=== PATIENT | male | born 1995 | race Caucasian/White ===

== ENCOUNTER 2021-04-10 09:46 | Emergency (ER) | payer BC, SELFPAY ==
--- NOTE | ~2021-04-10 | CT_ITS ---
EXAMINATION: CT BRAIN, CT CERVICAL SPINE AND CT FACIAL BONES WITHOUT CONTRAST. CLINICAL INFORMATION: Headache, memory loss and status post trauma. COMPARISON: None TECHNIQUE: 5 mm thin axial and reformatted 2 mm thin sagittal and coronal images of brain were obtained without contrast. Axial 3 mm thin and reformatted 1.5m thin sagittal and coronal images of facial bones were obtained. Subsequently axial 3 mm thin and reformatted 2 mm thin sagittal coronal images of cervical spine were obtained. DLP [id number]. FINDINGS: Brain: There is no acute intra-axial, extra-axial bleed, masses, collection or midline shift. There is no acute infarction in evolution. The lateral ventricles are symmetrical in size and configuration without ventriculomegaly. The frost to white matter difference is maintained normal. Bone windows reveal no calvarial abnormality. There is no scalp soft tissue abnormality. Facial bones: There is normal aeration of paranasal sinuses with a small polyp or retention cyst left maxillary sinus. There is mild mucoperiosteal thickening right maxillary sinus. Bilateral ostiomeatal complex and frontoethmoidal recesses are widely patent. There is mild hernandez bullosa right middle turbinate. Mild deviation nasal septum to the left is noted. The turbinates are symmetrical. The bony sinus villagomez, lamina papyracea and the cribriform plate appears normal. Cervical spine: There is normal cervical lordosis. The vertebral heights, alignment and disc heights are normal. The craniovertebral junction and the C1-C2 alignment is normal. There is no visible acute fracture, dislocation or subluxation. The thyroid lobes are symmetric and normal. The submandibular and parotid glands are symmetrical and normal. Central tracheal airway is widely patent. The lung apices are clear. The prevertebral and paravertebral soft tissues are normal. CT/CT cervical spine wo con IMPRESSION: No acute intracranial process seen. There is no maxillofacial, nasal mandible fracture. There is no acute fracture, dislocation or subluxation in cervical spine.
--- NOTE | ~2021-04-10 | XR_ITS ---
EXAMINATION: XR HAND, LEFT CLINICAL INFORMATION: Fourth and fifth metacarpal tenderness following a fall. COMPARISON: None TECHNIQUE: PA, lateral, and oblique views of the left hand. FINDINGS: The bones and soft tissues are normal. No fracture. Alignment is anatomic. Joint spaces are maintained. No erosions or soft tissue calcifications. XR/XR hand LT min 3V IMPRESSION: Unremarkable examination.
[2021-04-10 11:36] VITALS: BP 127/92; PULSE 70; RESP 18; TEMP 36.7; O2SAT 100; BMI 25.0
--- NOTE | 2021-04-10 12:47 | ED_ITS ---
HPI - Fall General Chief Complaint: Fall Stated Complaint: Fall Time Seen by Provider: 04/10/21 12:25 Source: patient Mode of arrival: ambulatory Limitations: no limitations History of Present Illness HPI Narrative: 26-year-old male who had a mechanical fall yesterday and hit his head presents for headache, neck pain, feeling tired and emotional. I patient was helping his boyfriend move trash at his place of work, and was jogging pulling a trash can be hind him to empty the trash. He tripped and fell, hitting his head. He fell onto pavement. He reports no loss of consciousness. States he also has left hand pain. Last night he does not remember going to bed, he usually does remember going to bed. He has a headache in the left side of his head which comes in waves. States he feels drunk and emotional, however he did take 1 shot this morning for pain. No nausea, no vomiting, no blurry vision. MD complaint: fall Onset (ago): day(s) (1) Fall from: standing Fall witnessed: no Place fall occurred: other Loss of consciousness: none Prolonged down time: no Symptoms prior to fall: none Context: tripped/slipped Location of injury: head Related Data Allergies Allergy/AdvReac Type Severity Reaction Status Date / Time No Known Allergies Allergy Verified 04/10/21 11:35 Review of Systems Constitutional: Constitutional: Reports fatigue and Reports headache(s) Eyes: Eyes: Denies blurry vision, Denies change in vision, Denies diplopia and Denies loss of vision ENT: Denies vertigo, Denies dizziness, Denies otalgia, Reports headache(s), Denies lip swelling, Denies epistaxis, Denies mouth pain, Denies nasal trauma, Reports neck pain, Denies odynophagia and Denies disequilibrium Comments: Left-sided chin is sore. Reports chipped tooth and boyfriend said mouth is bloody yesterday Cardiovascular: Cardiovascular: Denies chest pain, Denies syncope, Denies palpitations and Denies dyspnea Respiratory: Respiratory: Denies chest congestion, Denies cough and Denies dyspnea Gastrointestinal: Gastrointestinal: Denies abdominal pain, Denies nausea, Denies odynophagia and Denies vomiting Musculoskeletal: Musculoskeletal: Denies abnormal gait, Denies back pain, Denies deformity, Denies arthralgias, Reports neck pain, Denies numbness, Denies radiating pain into limb, Denies stiffness and Denies tingling Comments: Pain in dorsum of left hand Integumentary/Breasts: Comments: Sore, red, swollen left side of chin Neurologic: Denies Abnormal speech present, Denies abnormal gait, Denies behavioral changes, Denies confusion, Denies vertigo, Denies dizziness, Denies syncope, Reports headache(s), Denies focal weakness, Denies loss of vision, Reports memory loss, Denies numbness, Denies Other visual disturbances, Denies Sensory deficit (Neuro), Denies tingling and Denies disequilibrium Psychiatric: Psychiatric: Denies behavioral changes, Denies confusion and Reports memory loss Endocrine: Endocrine: Reports fatigue and Denies palpitations Allergic/Immunologic: Allergic/Immunologic: Denies lip swelling PMFSH Past Medical History Medical History (Updated 04/10/21 @ 15:53 by OSCAR Ferro) GERD (gastroesophageal reflux disease) Social History Social History Advance Directives: No Advance Directives Information Provided: No Physical Exam Vital Signs: Vital Signs: Last Vital Signs Temp 98.2 F 04/10/21 15:37 Pulse 60 04/10/21 15:37 Resp 16 04/10/21 15:37 BP 123/73 04/10/21 15:37 Pulse Ox 100 04/10/21 15:37 Body Mass Index 25.0 Const: General: No confusion Nutritional Appearance: well nourished Orientation/consciousness: patient oriented x3 and No confusion Limitations: no limitations HENMT: Head: Yes normal to inspection, No Nichols's sign, Yes contusion (left side of chin), No palpable skull fracture and No raccoon eyes Ears: hearing grossly normal bilaterally, external ears normal, TM's normal bilaterally and EAC's normal General nose exam: Normal external nose present Face and si nus: Yes normal facial exam and Yes sinuses nontender Mouth: Normal oral and palatal mucosa present Mouth/tongue images: 1. small chip off tooth Throat: Yes posterior oropharynx normal Eyes: Conjunctivae: conjunctivae normal Pupils: Equal, round and reactive pupils present EOM: EOMs intact bilaterally Neck: Neck: Yes full ROM, Yes no lymphadenopathy and Yes supple Chest: Chest palpation & inspection: normal inspection of the chest, normal palpation of entire chest wall and no tenderness Resp: Effort & Inspection: normal respiratory effort and able to speak in complete sentences Auscultation: clear to auscultation bilaterally, no crackles, no rales, no rhonchi and no wheezes Cardio: Rate: regular rate Rhythm: regular rhythm Heart sounds: S1 normal heart sound present and S2 normal heart sound present GI: Inspection: Yes normal to inspection Palpation (GI): Soft to palpation, nontender, no guarding and not rigid Percussion: Yes normal to percussion Auscultation: normal bowel sounds Back/Spine/Pelvis: Cervical Spine: normal cervical lordosis, cervical ROM normal, No Cervical spine tenderness and No step off deformity Thoracic/Lumbar Spine: No thoracic spinal tenderness and No lumbar spinal tenderness Pelvis: no pain with anterior-posterior compression Skin: Other: Mild ecchymosis to dorsum of left hand, mild swelling and contusion to left chin Neuro: General: patient oriented x3 and No confusion Cranial nerves: Yes CN's II-XII intact bilaterally, Yes Facial sensation intact/muscles of mastication intact, Yes Equal, round and reactive pupils present, Yes Bilaterally intact EOM present, Yes Nystagmus not present, Yes Normal facial strength present, Yes Midline tongue present, Yes Ability to bilaterally rotate head present and Yes Ability to bilaterally elevate shoulders present Cognition (Neuro): normal cognition Speech: No Abnormal speech present Gait exam (Neuro): Normal gait present Motor exam (neuro): 5/5 motor strength present throughout and Pronator motor function not present Sensory Exam: No Sensory deficit (Neuro) Deep tendon reflexes (DTR's): Right brachioradialis reflex intensity grade: 1+, Left brachioradialis reflex intensity grade: 1+, Right patellar reflex intensity grade: 2+ and Left patellar reflex intensity grade: 2+ Coordination: [id number] test normal Romberg Test: Negative Pupils: Normal pupillary reactivity/response: bilateral Extrem: General: Yes normal to inspection and Yes full ROM Psych: Appearance: grossly normal Affect: normal affect Attitude: cooperative Thought process: Normal thought process present Course Course Course Narrative: 26-year-old male had a mechanical fall and hit his head last night has headache, mild memory loss, neck pain, and left hand pain. On exam, patient is neurologically intact. Patient has tenderness over his 5th and 4th left metacarpals. Patient is also tender over his left anterior chin. Will get head CT facial CT cervical spine CT and x-ray left hand. Reevaluation(s) Reevaluation #1: XR hand is normal. CT/CT cervical spine wo con IMPRESSION: No acute intracranial process seen. There is no maxillofacial, nasal mandible fracture. There is no acute fracture, dislocation or subluxation in cervical spine.? Give concussion return precautions Discharge Plan Discharge Clinical Impression: Concussion without loss of consciousness Qualifiers: Encounter type: initial encounter Qualified Code(s): S06.0X0A - Concussion without loss of consciousness, initial encounter Patient Disposition: Home, Self-Care Instructions: Concussion (ED) Additional Instructions: Your hand x-ray and your head, neck, and facial bone CT were all normal. You do have a concussion. You should rest, and not do anything that makes her headache worse, which often is screen time. Please avoid getting hit in the head again any time soon. If you have sudden severe headache, visual changes, gait disturbance, leg weakness, few per nurse's your acting strangely, if you have vomiting, please return to be seen. Stand Alone Forms: Work/School Release
[2021-04-10] MEDS: Acetaminophen 325 MG TABLET 975 MG PO (13:40)
[2021-04-10 15:37] VITALS: BP 123/73; PULSE 60; RESP 16; TEMP 36.8; O2SAT 100
== END 2021-04-10 16:02 | disposition home or self-care (01) ==
PROVIDERS: Emergency Provider Emergency Medicine
DX: S06.0X0A Concussion without loss of consciousness, initial encounter (principal); M79.642 Pain in left hand; W01.0XXA Fall on same level from slipping, tripping and stumbling without subsequent striking against object, initial encounter; Y93.89 Activity, other specified; Y92.89 Other specified places as the place of occurrence of the external cause; Y99.9 Unspecified external cause status
CPT/HCPCS: 70450; 70486; 72125; 73130; 99284